=== PATIENT | female | born 1950 | race Caucasian/White ===

== ENCOUNTER → 2020-04-29 08:39 | Outpatient (CLI) | payer MEDICARE, OTHER, SELFPAY ==
--- NOTE | 2020-04-29 08:42 | XR_ITS ---
PROCEDURE: XR DEXA AXIAL SKELETON CLINICAL HISTORY: OSTEOPOROSIS SCREENING COMPARISON: No exams were available for comparison FINDINGS: The right hip BMD is 0.945 with a T-score of 0.9. The left hip BMD is 0.850 with a T-score of 0.0. The lumbar spine BMD is 1.045 with a T-score of 0.0. IMPRESSION: This patient is considered normal according to the World Health Organization criteria. Fracture risk is low. Based on these results a follow-up exam is recommended in 2 year. Dictated by: Spenser Paz MD 04/30/2020 04:37 Spenser Paz MD in [place] 04/30/2020 10:20
--- NOTE | 2020-04-29 08:43 | MM_ITS ---
PROCEDURE: MM DIG SCREENING MAMM BI W/CAD Digital Breast Tomosynthesis Included CLINICAL INDICATION: SCREENING There is a history of breast cancer in the patient's paternal great aunt. COMPARISON: MG MAMM-SCREENING DIRECT DIGITAL from 01/16/2016 MG MAMM-SCREENING DIRECT DIGITAL from 10/28/2017 MG MAMM-SCREENING W/DEJAH from 12/31/2018 TECHNIQUE: Standard CC and MLO images and 3D Tomosynthesis was obtained. R2 CAD reviewed. FINDINGS: Moderate diffuse somewhat heterogenic fibroglandular densities are seen in the central portions of both breast and the findings are bilateral and symmetrical. There are few scattered benign-appearing microcalcifications in each breast. There are stable small nodular densities deep within each breast likely intramammary nodes. There is no suspicious lesion in either breast and no suspicious microcalcifications. There are fatty replaced nodes in both axilla. IMPRESSION: Moderate diffuse breast density with no suspicious lesions seen BI-RAD Category: 2 Benign Finding(s) FOLLOW-UP: 1YR 1 Year Follow-up (A letter has been sent to the patient regarding results of the study.) Dictated by: Dr. Maxime Godfrey MD 04/30/2020 13:47 Dr. Maxime Godfrey MD in [place] 04/30/2020 13:47
== END ==
PROVIDERS: PCP Family Medicine; Visit Provider Family Medicine
DX: Z12.31 Encounter for screening mammogram for malignant neoplasm of breast (principal); Z13.820 Encounter for screening for osteoporosis; Z78.0 Asymptomatic menopausal state
CPT/HCPCS: 77063; 77067; 77080

== ENCOUNTER → 2021-11-02 10:40 | Outpatient (CLI) | payer MEDICARE, SELFPAY ==
--- NOTE | 2021-11-02 10:40 | MM_ITS ---
PROCEDURE INFORMATION: Exam: MG Bilateral Screening 3D Mammography Exam date and time: 11/02/2021 10:39 AM Age: 70 years old Clinical indication: Screening. Her maternal aunt had breast cancer. TECHNIQUE: Imaging protocol: Bilateral Screening tomosynthesis and 2D mammography including computer-aided detection (CAD) when performed. COMPARISON: 1. MG MM DIG SCREENING MAMM BI W/CAD 04/29/2020 9:01 AM 2. MG MAMM-SCREENING W/DEJAH 12/31/2018 1:36 PM FINDINGS: MAMMOGRAPHY: Breast composition: The breasts are heterogeneously dense, which may obscure small masses. Mass: No suspicious mass. Architectural distortion: None. Calcifications: No suspicious calcifications. Asymmetric density: Possible 0.5 cm focal asymmetry in the central to inner left breast, along the nipple line in the MLO, frame 21, and central or sligthly medial in the CC, frame 17, about 5-7 cm from the nipple. Skin thickening: None. Axillary adenopathy: None. IMPRESSION: Patient to be recalled for left diagnostic mammogram with spot compression in the CC and MLO as well as left breast ultrasound for further evaluation of possible left focal asymmetry. ASSESSMENT: BI-RADS Category 0: Incomplete- Need Additional Imaging Evaluation and/or Prior Mammograms for Comparison
== END ==
PROVIDERS: PCP Family Medicine; Visit Provider Family Medicine
DX: Z12.31 Encounter for screening mammogram for malignant neoplasm of breast (principal)
CPT/HCPCS: 77063; 77067

== ENCOUNTER → 2021-11-27 13:33 | Outpatient (CLI) | payer MEDICARE, SELFPAY ==
--- NOTE | 2021-11-27 13:34 | US_ITS ---
PROCEDURE INFORMATION: Exam: US Left Breast, Complete MG Left Diagnostic Breast Tomosynthesis Exam date and time: 11/27/2021 1:38 PM Age: 70 years old Clinical indication: Callback for additional assessment of 0.5 cm focal asymmetry in the inner central left breast identified on 11/02/2021 screening mammogram TECHNIQUE: Imaging protocol: Complete ultrasound of all four quadrants of the Left breast and the retroareolar regions, including ultrasound of the axilla when performed. Left Diagnostic tomosynthesis and 2D mammography including computer-aided detection (CAD) when performed. Unilateral or bilateral exam. COMPARISON: 1. MG MM DIG SCREENING MAMM BI W/CAD 11/02/2021 10:39 AM 2. MG MM DIG SCREENING MAMM BI W/CAD 04/29/2020 9:01 AM 3. MG MAMM-SCREENING W/DEJAH 12/31/2018 1:36 PM FINDINGS: MAMMOGRAPHY: Cc/MLO spot compression views were performed. The possible focal asymmetry in question diminishes in conspicuity significantly under spot compression. Throughout the entire visualized breast, a generally nodular glandular pattern has been present diffusely, dating back to 2013. No new or suspicious mass has developed No architectural distortion or suspicious calcifications are present ULTRASOUND: Ultrasound assessment of the upper outer quadrant, lower outer quadrant, lower inner quadrant, and upper inner quadrant and axilla was performed Anechoic circumscribed benign appearing cysts are present throughout the left breast, the largest measuring 0.5 cm along the left 3 o'clock axis, 0.6 cm along the left 5 o'clock axis, 0.6 cm along the left 10 o'clock axis No suspicious solid or cystic masses are present. No architectural distortion or shadowing. Normal axillary lymph nodes are incidentally noted IMPRESSION: No mammographic or sonographic evidence of malignancy. Recommend annual screening mammography unless otherwise clinically indicated. Assessment: BI-RADS category 2: Benign
== END ==
PROVIDERS: PCP Family Medicine; Visit Provider Family Medicine
DX: R92.8 Other abnormal and inconclusive findings on diagnostic imaging of breast (principal)
CPT/HCPCS: 76641; 76642; 77061; 77065; G0279

== ENCOUNTER → 2022-04-18 10:00 | Outpatient (CLI) | payer MEDICARE, SELFPAY ==
[2022-04-18 19:29] LABS: Basophils # 0.1 K/mm3 (0-0.2); Basophils % 1.5 % (0.1-2.0); Eosinophils # 0.1 K/mm3 (0.0-0.4); Eosinophils % 2.1 % (0.1-12.0); Hematocrit 46.4 % (37.0-47.0); Hemoglobin 15.4 g/dL (12.2-16.2); Lymphocytes % 34.8 % (10-50); Mean Corpuscular HGB Conc 33.3 g/dL (31.8-35.4); Mean Corpuscular Hemoglobin 29.4 pg (27.0-31.2); Mean Corpuscular Volume 88.4 fl (81-99); Mean Platelet Volume 10.6 fl (7.4-10.4); Monocytes # 0.4 K/mm3 (0.1-1.0); Monocytes % 7.9 % (1.7-9.3); Neutrophils % 53.7 % (37.0-80.0); Platelet Count 237 K/mm3 (142-424); Red Blood Count 5.25 M/mm3 (4.20-5.40); Red Cell Distribution Width 13.5 % (11.5-17.5); White Blood Count 5.6 K/mm3 (4.8-10.8)
[2022-04-18 19:37] LABS: Alanine Aminotransferase 27 U/L (12-78); Albumin Level 4.3 g/dl (3.5-5.0); Albumin/Globulin Ratio 1.9 (1.1-1.8); Alkaline Phosphatase 88 U/L (38-126); Anion Gap 11.6 mEq/L (5-15); Aspartate Amino Transferase 40 U/L (14-36); Bilirubin,Total 0.7 mg/dl (0.2-1.3); Blood Urea Nitrogen 22 mg/dl (7-17); Calcium 9.3 mg/dl (8.4-10.2); Carbon Dioxide 29 mmol/L (22.0-30.0); Chloride 103 mmol/L (98-107); Chol/HDL Ratio 3.6 (1-3.5); Cholesterol 163 mg/dl (140-200); Estimated Glomerular Filt Rate 62 ml/min (>60); GFR (African American) 75 ML/MIN (>60); Globulin 2.3 g/dL (1.3-3.2); Glucose 95 mg/dl (74-100); HDL Cholesterol 45 mg/dl (40-60); Potassium 4.6 mmoL/L (3.5-5.1); Sodium 139 mmol/L (136-145); Total Protein,Serum 6.6 g/dl (6.3-8.2); Triglycerides 79 mg/dl (30-150); Uric Acid 4.6 mg/dl (2.5-6.2); VLDL Cholesterol 16 mg/dL (0-40)
[2022-04-18 19:47] LABS: Direct LDL Cholesterol 87.99 mg/dL (100-129)
[2022-04-18 19:53] LABS: Creatinine,Urine Random 147 mg/dL (Not Estab.)
[2022-04-18 19:54] LABS: Microalbumin/Creatinine Ratio 7.4
[2022-04-18 20:08] LABS: Thyroid Stimulating Hormone 2.18 uIU/mL (0.465-4.68)
== END ==
PROVIDERS: PCP Family Medicine; Visit Provider Family Medicine
DX: E78.00 Pure hypercholesterolemia, unspecified (principal); I10 Essential (primary) hypertension
CPT/HCPCS: 80053; 80061; 82043; 82570; 84443; 84550; 85025

== ENCOUNTER → 2022-11-29 09:33 | Outpatient (CLI) | payer MEDICARE, SELFPAY ==
--- NOTE | 2022-11-29 09:38 | MM_ITS ---
PROCEDURE INFORMATION: Exam: MG Bilateral Screening 3D Mammography Exam date and time: 11/29/2022 9:50 AM Age: 71 years old Clinical indication: Screening mammogram TECHNIQUE: Imaging protocol: Bilateral Screening tomosynthesis and 2D mammography including computer-aided detection (CAD) when performed. COMPARISON: 1. MG MM DIG MAMM DX UNILAT LT CAD 11/27/2021 1:38 PM 2. MG MM DIG SCREENING MAMM BI W/CAD 11/02/2021 10:39 AM 3. MG MM DIG SCREENING MAMM BI W/CAD 04/29/2020 9:01 AM 4. MG MAMM-SCREENING W/DEJAH 12/31/2018 1:36 PM FINDINGS: MAMMOGRAPHY: Breast composition: The breast is heterogeneously dense, which may obscure small masses. Mass: Stable benign-appearing subcentimeter nodules are present in the bilateral breasts. No new or morphologically suspicious nodule has developed to suggest malignancy. Architectural distortion: No new or suspicious architectural distortion. Calcifications: No new or suspicious calcifications are present Asymmetric density: No new or suspicious asymmetric density is present Skin thickening: None. Axillary adenopathy: None. IMPRESSION: No mammographic evidence of malignancy. Recommend annual screening mammography unless otherwise clinically indicated. ASSESSMENT: BI-RADS category 2: Benign
== END ==
PROVIDERS: PCP Family Medicine; Visit Provider Family Medicine
DX: Z12.31 Encounter for screening mammogram for malignant neoplasm of breast (principal)
CPT/HCPCS: 77063; 77067

== ENCOUNTER 2024-04-16 10:58 | Day surgery (SDC) | payer MEDICARE, SELFPAY ==
[2024-04-14 16:14] VITALS: BMI 29.2
[2024-04-16 11:30] VITALS: BP 137/80; PULSE 68; RESP 16; TEMP 36.7; O2SAT 99
[2024-04-16] MEDS: LACTATED RINGERS 1000ML 1,000 ML 25 ML IV (11:41)
--- NOTE | 2024-04-16 11:44 | EXP.ANES.CKL ---
[facility] Disclaimer: The information contained in this section may have been updated after the patient was seen, as this information can be updated by other users. Medical History Hyperlipidemia Hypertension Surgical History H/O bilateral oophorectomy Social History Smoking Status: Never smoker alcohol intake: never substance use type: denies use current occupational status: employed Travel in the last 8 weeks: None [facility] Anesthesia Checklist Patient Identification Patient Identification: Arm Band and Verbal (Name & ) Structural Data Admitted From: Home Planned Operative Procedure/s: Colonoscopy Consent for Planned Operative Procedure(s) Verified: Yes Verified Documents: Surgical Consent and History and Physical NPO Status Verified Time NPO: 00:00 Additional verifications Anesthesia Reactions: No Airway Assessment Mallampati Score:: Class II C-Spine Mobility Assessed: Yes TMJ Mobility Assessed: Yes Dentition: Good Dentition Neurological Assessment Level of Consciousness: Awake Hx Seizures: No Numbness or tingling in extremities: No Anesthesia Plan Anesthesia Risk discussed: Yes Anesthesia Plan: Verified ASA Class: II Anesthesia Type: MAC
--- NOTE | 2024-04-16 12:12 | EXP.HP ---
History of Present Illness *Admission Date: 04/16/24 *Reason for visit:: Positive Cologuard *History of present illness: Mrs. Valle is a 73-year-old female who is here for screening colonoscopy secondary to a positive Cologuard. The examination is deemed medically necessary for screening colonoscopy. The patient has been seen, interviewed and examined prior to the procedure by both myself and the anesthesia provider. [facility] Disclaimer: The information contained in this section may have been updated after the patient was seen, as this information can be updated by other users. Medical History Hyperlipidemia Hypertension Surgical History H/O bilateral oophorectomy Social History (Updated 04/16/24 @ 11:45 by Alfonzo Phillips CRNA) Smoking Status: Never smoker alcohol intake: never substance use type: denies use current occupational status: employed Travel in the last 8 weeks: None Have you lived/traveled outside US in past 30 days?: No Contact w/someone who lives/traveled outside US past 30 days?: No Exposure to someone with infectious disease in past 14 days?: No Do you have a fever (greater than 100.4 F or 38 C)?: No Have you tested positive for COVID-19: No Exposed to someone with COVID-19 in past 14 days?: No Do you have a sore throat?: No Do you have a cough?: No Do you have any weakness?: No Do you have any diarrhea?: No Are you experiencing any unusual bleeding?: No Do you have any muscle aches/pain?: No Do you have any abdominal pain?: No Are you experiencing loss of taste or smell?: No Other Medical History Have you received the Pneumonia Vaccine: No Review of Systems Review of Systems Review of systems (narrative): Negative *Cardiovascular Comments: Negative *Gastrointestinal Comments: Negative *Genitourinary Comments: Negative *Musculoskeletal Comments: Negative *Neurologic Comments: Negative Meds Home Medications and Allergies Home Medications ?Medication ?Instructions ?Recorded ?Confirmed ?Type atorvastatin 10 mg tablet (Lipitor) 10 mg PO DAILY #90 tabs 04/18/22 04/16/24 Rx irbesartan 150 2 tab PO DAILY #180 tabs 04/18/22 04/16/24 Rx mg-hydrochlorothiazide 12.5 mg tablet amlodipine 5 mg tablet 5 mg PO DAILY 04/14/24 04/16/24 History New Prescriptions to Start Prescriptions: Allergies Allergy/AdvReac Type Severity Reaction Status Date / Time Penicillins (PENICILLINS) Allergy Intermediate I-RASH Verified 04/14/24 16:14 Exam Data for Last 24 hours Vital signs and Labs for Last 24 Hours: Temp Pulse Resp BP Pulse Ox O2 Del Method 98.1 F 68 16 137/80 99 Room Air 04/16/24 11:30 04/16/24 11:30 04/16/24 11:30 04/16/24 11:30 04/16/24 11:30 04/16/24 11:30 I & O for Last 24 hours: Intake & Output 04/13/24 04/14/24 04/15/24 04/16/24 23:59 23:59 23:59 23:59 Weight 170 lb *Routine HEENT Exam Head: Present normocephalic Eye: Present EOMI and PERRL ENT: Present mucous membranes moist *Routine Neck Exam Neck: Present supple *Routine Respiratory Exam Respiratory: Present CTA bilaterally *Routine Cardiovascular Exam Cardiovascular: Present RRR *Routine Abdominal Exam Abdominal: Present soft and normoactive bowel sounds; Absent tenderness *Routine Rectal Exam Rectal:: deferred *Routine Genitalia Exam Genitalia:: deferred *Routine Extremities Exam Extremities: Absent cyanosis, clubbing or edema *Routine Skin Exam Skin: Present warm; Absent rash *Routine Neurological Exam Neurological: Present alert and oriented X3 Assessment and Plan *Assessment and plan (1) Positive colorectal cancer screening using Cologuard test: Status: Acute Category: Medical Code(s): R19.5 - Other fecal abnormalities Plan A/P: 1. Positive Cologuard is the preprocedural diagnosis. The patient will be anesthetized/sedated using MAC sedation. The patient has been seen and examined. Cardiac and lung assessment prior to the examination is stable. Proceed with planned screening colonoscopy
[2024-04-16 12:18] VITALS: O2SAT 99
--- NOTE | 2024-04-16 12:24 | P.PCN_ITS ---
[facility] Procedure Note Date: 04/16/24 Time: 13:07 Procedure Note:: Colonoscopy Procedure Report: Colonoscopy with endoscopic mucosal resection (submucosal injection, snare cautery, soft coagulation and Endo Clip placement) Endoscopist: Nikita Ospina II, MD Referring physician: Nain Escobedo MD Date of Procedure: April 16, 2024 Equipment: Olympus 190 variable stiffness pediatric colonoscope Sedation: MAC sedation Indication: Mrs. Valle is a 73-year-old female who is here for initial screening colonoscopy secondary to a positive Cologuard test. The patient reports no abdominal pain, weight loss, change in her bowel habits or rectal bleeding. She reports no family history of colon cancer. Procedure: Prior to the procedure, a history and physical exam was performed, and patient's medications and allergies were reviewed. The risks, benefits and alternatives of the sedation and procedure were discussed with the patient. All questions were answered and informed consent was obtained. The patient was brought to the procedure room. Patient identification and proposed procedure were verified by the physician and the nurse. The patient was placed in a left lateral decubitus position and the scope was passed under direct vision. Throughout the procedure, the patient's blood pressure, pulse, and oxygen saturations were monitored continuously. The colonoscopy was accomplished without difficulty. The patient tolerated the procedure well. Findings: On digital rectal examination there was normal rectal tone. There were no external hemorrhoids. The colonoscope was introduced through the anal canal to the rectum and advanced to the cecum. The ileocecal valve and appendiceal orifice were identified. The scope was advanced a short distance into the ileum which appeared grossly normal. The scope was then withdrawn into the colon. There was a very large 35 to 37 mm polyp approximately 3 to 4 cm from the cecum and the ascending colon that encompassed one third of the circumference of the colon. This was inspected both on the anterograde and retroflexed view. There was no evidence of any depression or surface changes to suspect invasive carcinoma. The polyp was then injected at its base from the posterior side and the retroflexed position and in the antegrade position with initial 10 mL of Eleview and followed by another 10 mL of saline submucosally to raise the polyp with an injector needle. After the polyp was fully elevated submucosally, snare cautery was then utilized to piecemeal remove this and several large segments. This was inspected again on the retroflexed and anterior view and this was fully resected. The base of the polyp appeared to have some adenomatous tissue and both the cold snare and soft coagulation biopsy forceps was utilized to gently remove all visible adenomatous tissue. The margins of the polypectomy were then coagulated using the tip of the snare forceps with soft coagulation. Lastly, the large polypectomy site was closed with 5 endoclips with closure and there was no heme identified. This was again inspected on the posterior and anterior with a retroflex and there was no residual polyp identified. All of the piecemealed polyp resected tissue was removed. There was a second smaller 5 mm polyp that was adjacent to this removed via cold snare polypectomy. The remaining cecum, ascending, transverse, descending, sigmoid and rectum were grossly normal. There were no other mucosal abnormalities identified. Upon retroflexion within the rectum there were grade 1-2 internal hemorrhoids.The preparation was excellent throughout with Callaway Preparation Score of 9. The cecal time was 20 minutes. Impression: 1. Large 35 to 37 cm granular adenomatous polyp of ascending colon (4 to 5 cm distal to cecum) status post EMR removal Plan: I will follow-up the polyp histology. As long as there is no invasive adenocarcinoma, I will plan repeat colonoscopy again in 3 months to examine site of removal to inspect and determine whether there is any residual adenoma. I will discuss the findings with the patient and family.
[2024-04-16 13:11] VITALS: BP 126/64; PULSE 70; RESP 15; TEMP 36.3; O2SAT 96
[2024-04-16 13:21] VITALS: BP 110/69; PULSE 61; RESP 16; O2SAT 97
[2024-04-16 13:31] VITALS: BP 105/72; PULSE 66; RESP 18; O2SAT 97
[2024-04-16 13:41] VITALS: BP 130/72; PULSE 66; RESP 18; O2SAT 96
== END 2024-04-16 13:55 | disposition home or self-care (01) ==
PROVIDERS: PCP Family Medicine; Visit Provider Internal Medicine Gastroenterology
PROC: (CPT 45385; principal; 2024-04-16 12:30)
DX: R19.5 Other fecal abnormalities (principal); D12.2 Benign neoplasm of ascending colon; K63.5 Polyp of colon; K64.8 Other hemorrhoids; Z12.11 Encounter for screening for malignant neoplasm of colon
CPT/HCPCS: 45385; 45390; C1760; J2704; J7120

== ENCOUNTER 2024-07-23 08:50 | Day surgery (SDC) | payer MEDICARE, SELFPAY ==
[2024-07-23 09:09] VITALS: BP 143/86; PULSE 74; RESP 18; TEMP 36.5; O2SAT 74
--- NOTE | 2024-07-23 10:13 | EXP.ANES.CKL ---
[facility] Disclaimer: The information contained in this section may have been updated after the patient was seen, as this information can be updated by other users. Medical History Hyperlipidemia Hypertension Surgical History History of colonoscopy H/O bilateral oophorectomy Family History Other Family history of acute congestive heart failure Family history of hypertension Lung cancer Social History Smoking Status: Never smoker alcohol intake: never substance use type: denies use current occupational status: employed Travel in the last 8 weeks: None Have you lived/traveled outside US in past 30 days?: No Contact w/someone who lives/traveled outside US past 30 days?: No Exposure to someone with infectious disease in past 14 days?: No Do you have a fever (greater than 100.4 F or 38 C)?: No Have you tested positive for COVID-19: No Exposed to someone with COVID-19 in past 14 days?: No Do you have a sore throat?: No Do you have a cough?: No Do you have any weakness?: No Are you experiencing any nausea/vomitting?: No Do you have any diarrhea?: No Are you experiencing any unusual bleeding?: No Do you have any muscle aches/pain?: No Do you have any abdominal pain?: No Are you experiencing loss of taste or smell?: No [facility] Anesthesia Checklist Patient Identification Patient Identification: Arm Band and Verbal (Name & ) Structural Data Admitted From: Home Planned Operative Procedure/s: Colonoscopy Verified Documents: Surgical Consent NPO Status Verified Time NPO: 00:00 Chart Verification Results Verified: None Additional verifications Anesthesia Reactions: No Airway Assessment Mallampati Score:: Class II Dentition: Good Dentition Neurological Assessment Level of Consciousness: Awake, Alert and Appropriate Anesthesia Plan Anesthesia Risk discussed: Yes Anesthesia Plan: Verified ASA Class: II Anesthesia Type: MAC
--- NOTE | 2024-07-23 10:29 | P.HP_ITS ---
History of Present Illness *Admission Date: 07/23/24 *Reason for visit:: Large advanced adenomatous polyp *History of present illness: Mrs. Valle is a 73-year-old female who is here for surveillance colonoscopy secondary to a very large advanced adenomatous polyp of the ascending colon (35 to 37 mm) which was removed via endoscopic mucosal resection in April 2024. Colonoscopy is performed to evaluate for any residual advanced adenoma. The examination is deemed medically necessary for surveillance colonoscopy. The patient has been seen, interviewed and examined prior to the procedure by both myself and the anesthesia provider. [facility] Disclaimer: The information contained in this section may have been updated after the patient was seen, as this information can be updated by other users. Medical History (Updated 07/23/24 @ 10:31 by Nikita Ospina II, MD) Hyperlipidemia Hypertension Surgical History History of colonoscopy H/O bilateral oophorectomy Family History Other Family history of acute congestive heart failure Family history of hypertension Lung cancer Social History Smoking Status: Never smoker alcohol intake: never substance use type: denies use current occupational status: employed Travel in the last 8 weeks: None Have you lived/traveled outside US in past 30 days?: No Contact w/someone who lives/traveled outside US past 30 days?: No Exposure to someone with infectious disease in past 14 days?: No Do you have a fever (greater than 100.4 F or 38 C)?: No Have you tested positive for COVID-19: No Exposed to someone with COVID-19 in past 14 days?: No Do you have a sore throat?: No Do you have a cough?: No Do you have any weakness?: No Are you experiencing any nausea/vomitting?: No Do you have any diarrhea?: No Are you experiencing any unusual bleeding?: No Do you have any muscle aches/pain?: No Do you have any abdominal pain?: No Are you experiencing loss of taste or smell?: No Other Medical History Have you received the Pneumonia Vaccine: No Review of Systems Review of Systems Review of systems (narrative): Negative *Cardiovascular Comments: Negative *Gastrointestinal Comments: Negative *Genitourinary Comments: Negative *Musculoskeletal Comments: Negative *Neurologic Comments: Negative Meds Home Medications and Allergies Home Medications ?Medication ?Instructions ?Recorded ?Confirmed ?Type atorvastatin 10 mg tablet (Lipitor) 10 mg PO DAILY #90 tabs 04/18/22 07/23/24 Rx irbesartan 150 2 tab PO DAILY #180 tabs 04/18/22 07/23/24 Rx mg-hydrochlorothiazide 12.5 mg tablet amlodipine 5 mg tablet 5 mg PO DAILY 04/14/24 07/23/24 History aspirin 81 mg capsule 81 mg PO DAILY 07/22/24 07/23/24 History New Prescriptions to Start Prescriptions: Allergies Allergy/AdvReac Type Severity Reaction Status Date / Time Penicillins (PENICILLINS) Allergy Intermediate I-RASH Verified 07/23/24 09:08 Exam Data for Last 24 hours Vital signs and Labs for Last 24 Hours: Temp Pulse Resp BP Pulse Ox O2 Del Method 97.7 F 74 18 143/86 H 74 L Room Air 07/23/24 09:09 07/23/24 09:09 07/23/24 09:09 07/23/24 09:09 07/23/24 09:09 07/23/24 09:09 I & O for Last 24 hours: Intake & Output 07/20/24 07/21/24 07/22/24 07/23/24 23:59 23:59 23:59 23:59 Weight 175 lb *Routine HEENT Exam Head: Present normocephalic Eye: Present EOMI and PERRL ENT: Present mucous membranes moist *Routine Neck Exam Neck: Present supple *Routine Respiratory Exam Respiratory: Present CTA bilaterally *Routine Cardiovascular Exam Cardiovascular: Present RRR *Routine Abdominal Exam Abdominal: Present soft and normoactive bowel sounds; Absent tenderness *Routine Rectal Exam Rectal:: deferred *Routine Genitalia Exam Genitalia:: deferred *Routine Extremities Exam Extremities: Absent cyanosis, clubbing or edema *Routine Skin Exam Skin: Present warm; Absent rash *Routine Neurological Exam Neurological: Present alert and oriented X3 Assessment and Plan *Assessment and plan (1) Adenoma of ascending colon: Status: Acute Category: Medical Code(s): D12.2 - Benign neoplasm of ascending colon (2) Personal history of adenomatous and serrated colon polyps: Status: Acute Category: Medical Code(s): Z86.0101 - Personal history of adenomatous and serrated colon polyps Plan A/P: 1. Large 35 to 37 mm advanced adenomatous polyp in the ascending colon status post prior removal of the endoscopic mucosal resection is the preprocedural diagnosis. Colonoscopy repeated at 3 months to ensure no residual polyp. The patient will be anesthetized/sedated using MAC sedation. The patient has been seen and examined. Cardiac and lung assessment prior to the examination is stable. Proceed with planned surveillance colonoscopy.
[2024-07-23 10:39] VITALS: O2SAT 100
--- NOTE | 2024-07-23 10:40 | P.PCN_ITS ---
[facility] Procedure Note Date: 07/23/24 Time: 11:13 Procedure Note:: Colonoscopy Procedure Report: Colonoscopy with cold/hot snare cautery and coagulation and hot biopsy coagulation Endoscopist: Nikita Ospina II, MD Referring physician: Nain Escobedo MD Date of Procedure: July 23, 2024 Equipment: Olympus 190 variable stiffness pediatric colonoscope Sedation: MAC sedation Indication: Mrs. Valle is a 73-year-old female who underwent colonoscopy on April 16, 2024 secondary to a positive Cologuard test. That was her first colonoscopy and she was found to have a large 35 to 37 mm advanced adenomatous colon polyp in the ascending colon which was removed via endoscopic mucosal resection. 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 She is here for repeat surveillance to ensure no residual advanced adenoma at that site. She reports no abdominal pain, weight loss, change in her bowel habits or rectal bleeding. She reports no family history of colon cancer. Procedure: Prior to the procedure, a history and physical exam was performed, and patient's medications and allergies were reviewed. The risks, benefits and alternatives of the sedation and procedure were discussed with the patient. All questions were answered and informed consent was obtained. The patient was brought to the procedure room. Patient identification and proposed procedure were verified by the physician and the nurse. The patient was placed in a left lateral decubitus position and the scope was passed under direct vision. Throughout the procedure, the patient's blood pressure, pulse, and oxygen saturations were monitored continuously. The colonoscopy was accomplished without difficulty. The patient tolerated the procedure well. Findings: On digital rectal examination there was normal rectal tone. There were no external hemorrhoids. The colonoscope was introduced through the anal canal to the rectum and advanced to the cecum. The ileocecal valve and appendiceal orifice were identified. The scope was advanced a short distance into the ileum which appeared grossly normal. The scope was then withdrawn into the colon. The site of the prior large polypectomy was easily identified with a single Endo Clip. There was approximately 9 to 10 mm very flat residual adenomatous polyp. The Endo Clip was removed with a snare. Next, the residual polyp was shaved and removed using the Exacto cold snare. There still appeared to be some adenomatous tissue at the base and a hot biopsy forceps was utilized to grasp, cauterize and coagulate all of the adenomatous tissue. After there was no residual adenomatous tissue, the tip of the snare was used to coagulate the base of the polyp as well as the edges of the polypectomy site. There was no remaining residual adenomatous tissue. This with removal was performed both in the forward and retroflexed position in the ascending colon. The scope was then withdrawn. The remaining cecum, ascending and transverse colon and mucosa were grossly normal. There were scattered diverticuli throughout the descending and sigmoid colon (LEFT colon). The rectum itself was normal. Upon retroflexion within the rectum there were grade 1-2 internal hemorrhoids. The preparation was excellent throughout with Hutto Preparation Score of 9. The cecal time was 12 minutes. Impression: 1. Flat residual 9 to 10 mm adenomatous ascending polyp?status post complete removal with coagulation of polypectomy base and edges 2. Left-sided diverticulosis 3. Grade 1-2 internal hemorrhoids Plan: I will discuss the findings with the patient and family. At this point, I would recommend repeat surveillance colonoscopy again in 3 years.
[2024-07-23 11:16] VITALS: BP 121/72; PULSE 66; RESP 16; O2SAT 95
[2024-07-23 11:26] VITALS: BP 122/73; PULSE 61; RESP 16; O2SAT 96
[2024-07-23 11:36] VITALS: BP 116/74; PULSE 75; RESP 16; O2SAT 96
[2024-07-23 11:45] VITALS: BP 133/81; PULSE 69; RESP 16; O2SAT 97
== END 2024-07-23 11:54 | disposition home or self-care (01) ==
PROVIDERS: PCP Family Medicine; Visit Provider Internal Medicine Gastroenterology
PROC: 0DJD8ZZ Inspection of Lower Intestinal Tract, Via Natural or Artificial Opening Endoscopic (ICD-10-PCS; CPT 45378; principal; 2024-07-23 10:30)
DX: D12.2 Benign neoplasm of ascending colon (principal); K57.30 Diverticulosis of large intestine without perforation or abscess without bleeding; K64.8 Other hemorrhoids; Z86.0101 Personal history of adenomatous and serrated colon polyps
CPT/HCPCS: 45384; J7120

== ENCOUNTER 2024-11-25 08:16 | Outpatient (CLI) | payer MEDICARE, SELFPAY ==
--- NOTE | 2024-11-25 08:40 | MM_ITS ---
PROCEDURE INFORMATION: Exam: MG Bilateral Screening 3D Mammography Exam date and time: 11/25/2024 8:42 AM Age: 73 years old Clinical indication: Screening examination TECHNIQUE: Imaging protocol: Bilateral Screening tomosynthesis and 2D mammography including computer-aided detection (CAD) when performed. COMPARISON: 1. MG MM DIG SCREENING MAMM BI W/CAD 11/29/2022 9:50 AM 2. MG MM DIG MAMM DX UNILAT LT CAD 11/27/2021 1:38 PM FINDINGS: MAMMOGRAPHY: Breast composition: There are scattered areas of fibroglandular density. Mass: None. Architectural distortion: None. Calcifications: No suspicious calcifications. Asymmetric density: None. Skin thickening: None. Axillary adenopathy: None. IMPRESSION: No mammographic evidence of malignancy. Annual screening is recommended unless otherwise clinically indicated. ASSESSMENT: BI-RADS Category 1: Negative.
--- NOTE | 2024-11-25 09:39 | XR_ITS ---
FINAL REPORT TECHNIQUE: Bone densitometry calculations of the lumbar spine and left hip were obtained. CLINICAL HISTORY: SCREENING COMPARISON: None FINDINGS: Using L1-4, the bone mineral density of the spine is 1.175 g/cm2, corresponding to T-score of 1.2 and a Z score of 3.5. This is within the range of normal limit. Using the left hip, the bone mineral density of the total hip is 0.943 g/cm2, corresponding to a T-score of 0.0 and a Z-score of 0.7. This is within the range of normal limits. FRAX not reported because all T-scores at or above -1.0. NOTE: T-score: Standard deviation compared with peak bone mass of young adult mean. *Following the recommendations of the International Society of Bone densitometry, classification of hip BMD is based on the lower of two T-scores; total hip or femoral neck. IMPRESSION: 1. Bone mineral density of the lumbar spine within the range of normal limits. 2. Bone mineral density of the left femoral neck within the range of normal limits. Reviewed, Interpreted and Dictated by Mellisa Duarte MD Transcribed by Jasmina Reyes Authenticated and [facility]
== END 2024-11-25 23:59 | disposition home or self-care (01) ==
LOC: RAD 08:16
PROVIDERS: PCP Family Medicine; Visit Provider Family Medicine
DX: Z12.31 Encounter for screening mammogram for malignant neoplasm of breast (principal); Z13.820 Encounter for screening for osteoporosis; R92.323 Mammographic fibroglandular density, bilateral breasts; Z78.0 Asymptomatic menopausal state
CPT/HCPCS: 77063; 77067; 77080